=== PATIENT | female | born 1960 | race Caucasian/White ===

== ENCOUNTER 2019-03-15 09:11 | Outpatient (CLI) | payer OTHER ==
--- NOTE | 2019-03-15 10:28 | ULT ---
EXAM: US Abdominal CLINICAL HISTORY: Elevated liver function test. COMPARISON: None. FINDINGS: Pancreas: The head of the pancreas has a normal echotexture. The remainder the pancreas is obscured by bowel gas. IVC: Visualized IVC has a normal caliber. Aorta: Visualized aorta has a normal caliber. Liver:Normal hepatic parenchymal echotexture. No hepatic masses or intrahepatic biliary dilatation. T he contour of the hepatic margins maintained. Right hepatic lobe measures 15 cm. Gallbladder: Surgically absent Bustillo's sign:Not applicable CBD: 0.35 cm common bile duct diameter Portal vein: Patent. Appropriate directional flow. Right kidney: No hydronephrosis. Right kidney measuring 10.6 x 4.0 x 5.4 cm in length. There is right renal cortical thinning. Left kidney: No hydronephrosis. Left kidney measuring 5.2 x 10.2 x 5.2 cm in length. There is left re nal cortical thinning. Spleen: Normal echotexture. Spleen measures 12.4 cm in maximum dimension IMPRESSION: Unremarkable exam.
== END 2019-03-15 09:12 | disposition home or self-care (01) ==
LOC: SCSULT 09:11
PROVIDERS: ATTEND Family Medicine
DX: R74.8 Abnormal levels of other serum enzymes (principal)
CPT/HCPCS: 93975

== ENCOUNTER 2019-05-07 10:15 | Outpatient (CLI) | payer BC ==
--- NOTE | 2019-05-21 15:54 | MMO ---
Bilateral MAMMO Bilat Screen [facility]. CLINICAL HISTORY: Patient is 58 years old and is seen for screening. The patient has the following family history of breast cancer: cousin female and maternal aunt, GREAT. The patient has no personal history of cancer. VIEWS: The views performed were: bilateral craniocaudal with tomosynthesis and bilateral mediolateral oblique with tomosynthesis. FILMS COMPARED: The present examination has been compared to prior imaging studies performed at [facility] on 03/13/2012 and 03/20/2012, at [facility] on 04/20/2003, and at [facility] on 11/15/1998. This study has been interpreted with the assistance of computer-aided detection. MAMMOGRAM FINDINGS: There are scattered fibroglandular densities. There are no suspicious masses, suspicious calcifications, or new areas of architectural distortion. IMPRESSION: THERE IS NO MAMMOGRAPHIC EVIDENCE OF MALIGNANCY. A ROUTINE FOLLOW-UP MAMMOGRAM IN 1 YEAR IS RECOMMENDED. THE RESULTS OF THIS EXAM WERE SENT TO THE PATIENT. ACR BI-RADS Category 1 - Negative MAMMOGRAPHY NOTE: 1. A negative mammogram report should not delay a biopsy if a dominant of clinically suspicious mass is present. 2. Approximately 10% to 15% of breast cancers are not detected by mammography. 3. Adenosis and dense breasts may obscure an underlying neoplasm. Reported by: SAVI CASTREJON MD Electonically Signed: [id number]
== END 2019-05-07 10:16 | disposition home or self-care (01) ==
LOC: BICMAMMO 10:15
PROVIDERS: ATTEND Family Medicine
DX: Z12.31 Encounter for screening mammogram for malignant neoplasm of breast (principal); Z80.3 Family history of malignant neoplasm of breast
CPT/HCPCS: 77063; 77067

== ENCOUNTER 2022-09-05 09:42 | Outpatient (CLI) | payer BC | END 2022-09-05 09:43 | disposition home or self-care (01) | LOC: BICMAMMO 09:42 | PROVIDERS: ATTEND Family Medicine | DX: Z12.31 Encounter for screening mammogram for malignant neoplasm of breast (principal) | CPT/HCPCS: 77063; 77067 ==